=== PATIENT | male | born 1985 | race Caucasian/White ===

== ENCOUNTER 2019-12-23 18:01 | Emergency (ER) | payer BC ==
[2019-12-23 18:07] VITALS: BP 155/88; PULSE 94; RESP 18; TEMP 97.9
--- NOTE | 2019-12-23 19:17 | ED ---
Skin/Abscess/FB HPI - General Chief complaint: Skin/Abscess/Foreign Body Stated complaint: pain in left side of ribs Time Seen by Provider: 12/23/19 18:09 Source: patient Mode of arrival: ambulatory Limitations: no limitations - History of Present Illness Initial comments: Patient is a 34-year-old male presenting to the emergency department with a chief complaint of left rib discomfort. She states since yesterday he noticed a "lump or a knot" on the left rib border. States it is not painful but rather a discomfort. Denies any alleviating aggravated factors. States he most likely hit the left side of his chest while he was at work. 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 He denies any pain with palpation. Denies any chest pain or shortness of breath. Denies unilateral leg swelling or history of DVT or PE. - Related Data Allergies Allergy/AdvReac Type Severity Reaction Status Date / Time No Known Allergies Allergy Verified 12/23/19 18:05 Review of Systems ROS Statement: Those systems with pertinent positive or pertinent negative responses have been documented in the HPI. ROS Other: All systems not noted in ROS Statement are negative. Past Medical History Past Medical History: No Reported History Past Surgical History: No Surgical Hx Reported Smoking Status: Current some day smoker Past Alcohol Use History: Daily Past Drug Use History: Marijuana General Exam Limitations: no limitations General appearance: alert, in no apparent distress Head exam: Present: atraumatic, normocephalic, normal inspection Eye exam: Present: normal appearance, PERRL, EOMI Pupils: Present: normal accommodation ENT exam: Present: normal exam, normal oropharynx, mucous membranes moist Neck exam: Present: normal inspection, full ROM. Absent: tenderness Respiratory exam: Present: normal lung sounds bilaterally. Absent: respiratory distress, wheezes, rales, rhonchi, stridor, chest wall tenderness (No reproducible tenderness along the left lower rib border.), accessory muscle use, decreased breath sounds, prolonged expiratory Cardiovascular Exam: Present: regular rate, normal rhythm, normal heart sounds GI/Abdominal exam: Present: soft. Absent: distended, tenderness, guarding, rebound Extremities exam: Present: normal inspection, full ROM, normal capillary refill, other (+2 ulnar and radial pulses bilaterally.). Absent: tenderness Back exam: Present: normal inspection, full ROM. Absent: tenderness, CVA tenderness (R), CVA tenderness (L) Neurological exam: Present: alert, oriented X3, normal gait Psychiatric exam: Present: normal affect, normal mood Skin exam: Present: warm, dry, intact, normal color Course Vital Signs 12/23/19 18:03 Temperature 97.9 F Pulse Rate 94 Respiratory 18 Rate Blood Pressure 155/88 O2 Sat by Pulse 99 Oximetry Medical Decision Making - Medical Decision Making Patient is 34-year-old male presenting to the emergency department with a chief complaint of pain on the right. Physical examination, I was not able to reproduce the pain that he was having. No visible signs of any abnormal masses or protrusion of the left-sided ribs. He is not having any chest pain or shortness of breath. X-ray of the left rib and chest is unremarkable. Patient thinks that he injured it while he was at work. Patient was advised to follow with his primary care physician. Strict return prescribed as were thoroughly discussed the patient was understanding and agreeable. Case discussed with physician. Disposition Clinical Impression: Rib pain on left side Disposition: HOME SELF-CARE Condition: Stable Instructions (If sedation given, give patient instructions): Anxiety (ED) Additional Instructions: Follow with her primary care physician. Return to emergency department if symptoms worsen. Is patient prescribed a controlled substance at d/c from ED?: No Referrals: Anatoly Forbes MD [Primary Care Provider] - 1-2 days Time of Disposition: 19:31
--- NOTE | 2019-12-23 19:21 | XR ---
EXAMINATION TYPE: XR ribs LT w pa chest xray DATE OF EXAM: 12/23/2019 COMPARISON: NONE HISTORY: Left-sided rib pain TECHNIQUE: 5 views FINDINGS: Heart and mediastinum are normal. Lungs are clear of infiltrate. There is no pleural effusi on or pneumothorax. Left shoulder appears intact. The left ribs appear intact. IMPRESSION: Normal chest. Normal left ribs.
== END 2019-12-23 19:39 | disposition home or self-care (01) ==
LOC: EC 18:01
DX: R07.81 Pleurodynia (principal); F17.200 Nicotine dependence, unspecified, uncomplicated
CPT/HCPCS: 99283